=== PATIENT | male | born 1990 | race African-American/Black ===

== ENCOUNTER 2020-06-15 02:20 | Emergency (ER) | payer OTHER ==
[~2020-06-15] VITALS: Ht 175.3 cm; Wt 70.3 kg
[2020-06-15 03:33] LABS: ABSOLUTE NEUTROPHILS 6.1 thou/uL (1.4-8.2); BASOPHILS 0.4 % (0.0-2.0); EOSINOPHILS 1.3 % (0.0-3.0); HEMATOCRIT 41.2 % (42.0-52.0); HEMOGLOBIN 13.9 gm/dL (14.0-18.0); LYMPHOCYTES 10.4 % (24.0-44.0); MCH 31.3 pg (26.0-34.0); MCHC 33.6 g/dL (28.0-37.0); MONOCYTES 11.3 % (1.0-8.0); PLATELET COUNT 200 thou/uL (150-400); POLYS 76.6 % (36.0-66.0); RBC 4.43 mil/uL (4.50-6.00)
[2020-06-15 03:40] LABS: ANION GAP 10 mmol/L (7-16); BUN 17 mg/dL (7-18); CALCIUM 9.3 mg/dL (8.5-10.1); CHLORIDE 100 mmol/L (98-107); CO2 25 mmol/L (21-32); CREATININE 1.4 mg/dL (0.7-1.3); GLUCOSE 84 mg/dL (74-106); POTASSIUM 3.9 mmol/L (3.5-5.1); SODIUM 135 mmol/L (136-145)
[2020-06-15 03:51] LABS: ALBUMIN 3.7 g/dL (3.4-5.0); DIRECT BILIRUBIN < 0.1 mg/dL (<0.1-0.2); SGOT 471 U/L (15-37); SGPT 265 U/L (16-63); TOTAL BILIRUBIN 0.5 mg/dL (0.2-1.0); TOTAL PROTEIN 7.7 g/dL (6.4-8.2); TROPONIN-I <0.06 ng/mL (<0.06)
[2020-06-15 04:28] LABS: URINE BILIRUBIN NEGATIVE (Negative); URINE BLOOD 1+ (Negative); URINE CLARITY CLEAR; URINE COLOR YELLOW; URINE GLUCOSE-RANDOM* NEGATIVE (Negative); URINE KETONES TRACE (Negative); URINE LEUKOCYTES-REFLEX 1+ (Negative); URINE NITRITE-REFLEX NEGATIVE (Negative); URINE PROTEIN (DIPSTICK) NEGATIVE (Negative); URINE SPECIFIC GRAVITY 1.015 (1.005-1.035)
[2020-06-15 04:36] LABS: AMP/METHAMP Negative (Negative); BARBITURATES Negative (Negative); BENZODIAZEPINES Negative (Negative); COCAINE Negative (Negative); METHADONE Negative (Negative); OPIATES POSITIVE (Negative); PCP Negative (Negative)
[2020-06-15 05:06] LABS: BACTERIA-REFLEX None Seen /HPF (None Seen); CASTS None Seen /LPF (None Seen); CRYSTALS None Seen /LPF (None Seen); MUCUS 0-3 Light strn/LPF (None Seen); SQUAMOUS None Seen /LPF (0-3); TRANSITIONAL EPITHEL CELL 0-3 Few /LPF (None Seen); URINE RBC None Seen /HPF (0-2); URINE WBC-REFLEX 6-15 Few /HPF (0-5); WBC CLUMPS Occasional (None Seen)
[2020-06-15] MEDS ORDERED: MACROBID 100 M100 M1 PO (05:15)
[2020-06-15 05:30] VITALS: BP 136/86
--- NOTE | 2020-06-16 07:35 | EKG ---
[address] [address] [place] [address] ELECTROCARDIOGRAM REPORT Name: BETTY ORELLANA Room #: [facility]P [facility] [id number] Admission: 06/15/20 Attend Phys: Discharge: 06/15/20 Date of : 89 Report #: [id number] [facility] ED Test Date: 2020-06-15 Test Time: 02:35:29 Pat Name: BETTY ORELLANA Department: Room: Gender: Reserves Clerk: izzy : 1990 Requested By: Lise Davis Order Number: [id number] MD: Gonzales Patel Measurements Intervals [place] Rate: 89 P: 79 W[place]: 137 QRS: 74 QRSD: 82 T: 53 QT: 365 QTc: 445 Interpretive Statements Sinus rhythm ST elev, probable normal early repol pattern No previous ECG available for comparison Electronically Signed On 06-16-2020 7:35:50 [employer]ATE [employer]NAGER by Gonzales Patel [email or web address] <ELECTRONICALLY SIGNED> By: Gonzales Patel MD, [facility] 06/16/20 0735 [id number] Gonzales Patel MD, FACC /EPI
== END 2020-06-15 05:30 | disposition home or self-care (01) ==
LOC: ER 02:20
PROVIDERS: Emergency Medicine
DX: N39.0 Urinary tract infection, site not specified (principal); Z98.890 Other specified postprocedural states